=== PATIENT | female | born 1995 | race Caucasian/White ===

== ENCOUNTER 2017-08-02 08:07 | Emergency (ER) | payer SELFPAY ==
[2017-08-02] MEDS ORDERED: Ketorolac Tromethamine 60 MG/2 ML VIAL ONE (08:47)
== END 2017-08-02 09:29 | disposition home or self-care (01) ==
LOC: ERS 08:07
DX: M54.42 Lumbago with sciatica, left side (principal)
CPT/HCPCS: 96372; J1885